=== PATIENT | male | born 1955 | race Caucasian/White ===

== ENCOUNTER 2019-05-07 09:37 | Emergency (ER) | payer OTHER, SELFPAY ==
[2019-05-07 09:45] VITALS: BP 156/85; PULSE 95; RESP 18; TEMP 36.1; O2SAT 95
[2019-05-07 10:00] VITALS: BP 133/99; BP 178/113; PULSE 61; PULSE 79; RESP 18; RESP 8; O2SAT 94; O2SAT 97
[2019-05-07 10:30] VITALS: BP 135/94; PULSE 82; RESP 18; O2SAT 96
--- NOTE | 2019-05-07 10:31 | DI.RAD.S_ITS ---
PROCEDURE: XR CHEST 1V INDICATIONS: chest pain TECHNIQUE: One view of the chest was acquired. COMPARISON: None. FINDINGS: Surgical changes and devices: Prior similar chest single view obtained reviewed.. Lungs and pleura: Lungs are clear. No pleural effusions or pneumothorax. Mediastinum: Mediastinal contours appear normal. Heart size is normal. Bones and chest wall: No suspicious bony lesions. Overlying soft tissues appear unremarkable. IMPRESSION: Normal for age, source of current chest pain symptoms is not seen. Dictated by: Misael Henderson M.D. on 05/07/2019 at 10:58 Approved by: Misael Henderson M.D. on 05/07/2019 at 10:58
--- NOTE | 2019-05-07 10:42 | PC.NURSE ---
pt reports, fasting for 9 days, today woke up feeling groggy lost balance, onset 0515 felt fine last night, denies any injuries or trauma at this time with bilateral hands tingling neuro exam negative denies fever,vomiting,vomiting, reports, having diarrhea due to fasting, diarrhea x3 in the last 24 hours denies blood.
[2019-05-07 10:57] VITALS: BP 153/98; PULSE 65; RESP 9; O2SAT 97
[2019-05-07 11:00] VITALS: BP 161/100; PULSE 69; RESP 10; O2SAT 98
[2019-05-07 11:33] LABS: Add Manual Diff / Slide Review NO; Basophils Absolute Auto 100 /uL (0-100); Basophils Percent Auto 1.5 % (0-2); Eosinophils Absolute Auto 200 /uL (0-450); Eosinophils Percent Auto 2.6 % (2-4); Hematocrit 44.1 % (41-53); Hemoglobin 15.1 g/dL (13.5-17.5); Lymphocytes Absolute Auto 2000 /uL (1100-4500); Lymphocytes Percent Auto 31.1 % (25-40); Mean Corpuscular HGB Conc 34.2 % (30-36); Mean Corpuscular Hemoglobin 31.8 PG (26-34); Mean Corpuscular Volume 92.9 fL (80-100); Monocytes Absolute Auto 600 /uL (0-900); Monocytes Percent Auto 9.1 % (3-14); Neutrophils Absolute Auto 3600 /uL (1500-7000); Neutrophils Percent Auto 55.7 % (50-75); Platelet Count 196 X10^3/uL (150-400); Red Blood Cell Count 4.74 X10^6/uL (4.5-5.9); Red Cell Distribution Width 13.7 % (11.6-14.8); White Blood Cell Count 6.4 X10^3/uL (4.5-11.0)
[2019-05-07 11:37] LABS: INR 1.1 (0.9-1.3)
[2019-05-07 11:39] LABS: RBC Urine None Seen (0-5/HPF); WBC Urine None Seen (0-5/HPF)
[2019-05-07 11:40] LABS: PTT Partial Thromboplastin Tim 33 SECONDS (26.4-36.2)
[2019-05-07 11:45] LABS: Appearance Urine UA CLEAR; Bilirubin Urine UA NEGATIVE (NEGATIVE); Color Urine UA YELLOW; Glucose Urine UA NEGATIVE (Negative); Ketones Urine UA 2+ (NEGATIVE); Leukocyte Esterase Urine UA NEGATIVE (NEGATIVE); Nitrite Urine UA NEGATIVE (Negative); Occult Blood Urine UA NEGATIVE (Negative); Protein Urine UA NEGATIVE (Negative); Specific Gravity Urine UA <=1.005 (1.000-1.035); Urobilinogen Urine UA 0.2 E.U./dL (0.2); pH Urine UA 5.5 (4.5-8.0)
[2019-05-07 11:45] LABS: Alanine Aminotransferase 25 IU/L (<50); Albumin 4.7 g/dL (3.5-5.0); Albumin Globulin Ratio 1.4 (1.0-2.8); Alkaline Phosphatase 69 U/L (38-126); Aspartate Aminotransferase 30 IU/L (17-59); BUN Creatinine Ratio 7.8 (6-22); Bilirubin Total 0.8 mg/dL (0.2-1.3); Blood Urea Nitrogen 7 mg/dL (9-20); Calcium 9.8 mg/dL (8.4-10.2); Carbon Dioxide 27 mmol/L (22-32); Chloride 96 mmol/L (98-107); Creatine Kinase 102 U/L (55-170); Estimated Glomerular Filt Rate > 60.0 mL/min (>60); Globulin 3.4 g/dL (1.7-4.1); Glucose 90 mg/dL (80-110); HEMOLYSIS < 15 (0-50); Lipase 87 U/L (23-300); Potassium 4.9 mmol/L (3.4-5.1); Sodium 138 mmol/L (137-145); Total Protein 8.1 g/dL (6.3-8.2)
[2019-05-07 11:55] VITALS: BP 136/86; PULSE 68; RESP 16
[2019-05-07 11:56] LABS: Troponin I < 0.012 ng/mL (0.01-0.034)
--- NOTE | 2019-05-07 11:59 | DI.CT.S_ITS ---
PROCEDURE: CT HEAD/BRAIN WO CON INDICATIONS: balance problem when work up this morning which lasted brief TECHNIQUE: Noncontrast 4.5 mm thick angled axial sections acquired from the foramen magnum to the vertex, with coronal and sagittal reformats. For radiation dose reduction, the following was used: automated exposure control, adjustment of mA and/or kV according to patient size. COMPARISON: [facility], CR, XR CHEST 1V, 05/07/2019, 10:35. FINDINGS: Image quality: Excellent. CSF spaces: Basal cisterns are patent. No extra-axial fluid collections. The ventricles are symmetric in size and shape. Brain: No intracranial bleeds or masses. There is cerebral volume loss for age, with resultant ventricular and sulcal prominence. There are periventricular and deep white matter chronic small vessel ischemic changes. There is intracranial internal carotid artery atherosclerosis. Skull and face: Calvarium and visualized facial bones appear intact, without suspicious lesions. Sinuses: Visualized sinuses and mastoids are clear. IMPRESSION: Normal intracranial examination for age, without an imaging explanation for the patient's presenting symptoms. If it would be helpful for clinical management decision making, please consider a dedicated brain MRI without and with contrast for further evaluation (assuming that there is no contraindication). Dictated by: Cb Dewey M.D. on 05/07/2019 at 11:34 Approved by: Cb Dewey M.D. on 05/07/2019 at 11:35
[2019-05-07 12:01] LABS: CKMB % Relative Index 0.9 % (1.5-5.0); Creatine Kinase MB 0.88 ng/mL (<2.37)
[2019-05-07 12:17] LABS: Bacteria Urine Occasional (0-1); Culture Indicated Urine Cult Not Indicated
--- NOTE | 2019-05-07 13:10 | ED_ITS ---
HPI - Dizziness <KENNETH Virgen - Last Filed: 05/07/19 22:07> General Chief Complaint: Dizziness Stated Complaint: Dizziness Time Seen by Provider: 05/07/19 11:28 Source: patient Mode of arrival: Ambulatory Limitations: no limitations History of Present Illness HPI Narrative: This is a 63-year-old male, former smoker, who presents to ED with chief complain of feeling drunk with balance problem he woke up this morning at 5:15 a.m.. Patient got out of bed and stood up and had difficulty with balance and fell backwards and sat himself down back to the bed. Patient ambulated leaning to right-sided and felt like falling over without dizziness or lightheadedness during morning hygiene routines. However, this has improved and patient fell symptom free driving to work this morning. Patient denies vision change, headache, speech difficulty, dysphagia, weakness to extremity, facial droops. Patient reports he has completed 8 day duration of fasting and is currently on day 9th. Patient only has been drinking water and black coffee along multi vitamins and supplements last 8-9 days. Patient started intermittent fasting over 24 hours during last 1.5 years for elevated Hgb A1c which was 12 and now it has decreased to 5.9 and is not taking any diabetic medications. Patient had a couple of times of longer duration of fasting up to 14 days without any problems now for weight loss. Patient currently is taking Eliquis 5 mg b.i.d. dose for history of a flutter since July 2017. Patient denies any recent trauma to her head or fall. Related Data Home Medications Medication Instructions Recorded Confirmed apixaban [Eliquis] mg 05/07/19 Allergies Allergy/AdvReac Type Severity Reaction Status Date / Time No Known Drug Allergies Allergy Verified 05/07/19 09:56 Review of Systems <KENNETH Virgen - Last Filed: 05/07/19 22:07> Review of Systems Narrative: General: Denies fever, chills, fatigue, malaise, sweats. HEENT: Denies sinus pain, ear pain, sore throat, difficulty swallowing, dizziness. Respiratory: Denies dyspnea, cough, wheezing, hemoptysis, sputum. Cardiovascular: Denies chest pain, palpitations, orthopnea, edema. Gastrointestinal: Denies nausea, vomiting, abdominal pain, diarrhea, constipation, melena. : Denies dysuria, frequency, incontinence, hematuria, urinary retention. Musculoskeletal: Denies weakness, joint pain or bony pain. Skin: Denies rash, skin lesions, or other. Neurologic: Denies weakness, headache, numbness, change in speech, confusion, seizures, (+) balance difficulty, incoordination. Psychiatric: No concerning psychosocial issues. 12-point review of systems is negative except for those stated above. Patient History <KENNETH Virgen - Last Filed: 05/07/19 22:07> Medical History Atrial flutter (Acute) Diabetes type 2, controlled (Acute) Social History Smoking Status: Former smoker Smoking Status: Former smoker alcohol intake frequency: other Substance Use Type: does not use Exam <KENNETH Virgen - Last Filed: 05/07/19 22:07> Narrative Exam Narrative: GEN: Alert, oriented x 3, well appearing and nourished, and in no acute distress. Head: Normal cephalic, atraumatic. No scalp or temporal tenderness, palpable mass or rash. EYES: Pupils are equal, round, and reactive to light and accommodation. Extraocular muscles are intact bilaterally. There is no subconjunctival hemorrhage, exudate and sclera non-icteric. ENT: Bilateral auditory canals and tympanic membranes clear. Hearing grossly intact. Nose without bleeding, purulent discharge, septal hematoma or deviation. Turbinate without erythema or swelling. Facial sinuses nontender to palpate. Mucous membrane moist, no mucosal lesion. Throat without erythema, tonsillar hypertrophy or exudate. Uvula in midline, airway patent. Neck: Trachea in midline. No JVD, non-tender without lymphadenopathy. No masses or thyroid megaly. Supple, non-tender and no meningeal signs. CARDIAC: Normal regular rate and rhythm without murmurs, gallops, or rubs. No chest wall tenderness. No peripheral edema, cyanosis or pallor. Capillary refill is less than 2 seconds. No carotid bruits. RESPIRATORY: Lungs are cleat to auscultate bilaterally. No cough, wheezes, rales, or rhonchi. No stridor, respiratory distress, increase work of breathing, or accessary muscle used. ABD: Abdomen soft, nontender and non-distended. No guarding or rebound tenderness to palpate. Bowel sounds are normal in all 4 quadrants. There is no palpable masses or organomegaly. EXT: Full painless ROM of all extremities with no loss of sensation, strength, effusion or edema. SKIN: Warm, dry, normal color for patient. No erythema, lesions or rash. BACK: Nontender without deformity or crepitance. No flank tenderness. NEUROLOGICAL: Alert and oriented to place, time and person. No facial droops, dysphasia. CN II-XII intact. Strength and sensation symmetric and intact throughout. Cerebellar testing normal. PSYCHIATRIC: Good judgement and reason, without hallucinations, abnormal affect or abnormal behaviors during the examination. Patient is not suicidal. Initial Vital Signs Initial Vital Signs: Vital Signs Temperature 96.9 F L 05/07/19 09:45 Pulse Rate 95 H 05/07/19 09:45 Respiratory Rate 18 05/07/19 09:45 Blood Pressure 156/85 H 05/07/19 09:45 Pulse Oximetry 95 05/07/19 09:45 <Emma Fofana DO - Last Filed: 05/09/19 20:00> Initial Vital Signs Initial Vital Signs: Vital Signs Temperature 96.9 F L 05/07/19 09:45 Pulse Rate 95 H 05/07/19 09:45 Respiratory Rate 18 05/07/19 09:45 Blood Pressure 156/85 H 05/07/19 09:45 Pulse Oximetry 95 05/07/19 09:45 Scores <KENNETH Virgen - Last Filed: 05/07/19 22:07> GCS Herman coma scale eye opening: Spontaneous Andra coma scale verbal response: Orientated Herman coma scale motor response: Obey commands Andra coma scale total score: 15 NIH Stroke Scale Level of Conciousness: Alert, keenly responsive Ask month/age: Answers both questions correctly. Open/close eyes, close hand: Performs both tasks correctly Best gaze horizontal: Normal Visual hart: No visual loss Facial palsy: Normal symetrical movement Left arm drift: No drift for full 10 sec Right arm drift: No drift for full 10 sec Left leg drift: No drift for full 10 sec Right leg drift: No drift for full 10 sec Limb ataxia: Absent Sensory on face/arms/legs: Normal, no sensory loss Best language: No aphasia, normal Dysarthria: Normal Extinction or inattention: No abnormality Total NIH Stroke scale score: 0 Course <KENNETH Virgen - Last Filed: 05/07/19 22:07> Orders Ordered: ED Orders 05/07/19 10:03 EKG-12 Lead Stat 05/07/19 10:31 XR chest 1V Stat 05/07/19 11:23 Complete Blood Count AUTO DIFF Stat Comprehensive Metabolic Panel Stat Lipase Stat Partial Thromboplastin Time Stat Prothrombin Time INR Stat Troponin & CK Cardiac Panel Stat 05/07/19 11:38 Urinalysis and Microscopic Stat 05/07/19 11:59 CT head/brain wo con Stat Vital Signs Vital signs: Vital Signs - 8 hr 05/07/19 09:45 05/07/19 10:00 05/07/19 10:30 Temperature 96.9 F L Pulse Rate 95 H 61 82 Respiratory Rate 18 8 L 18 Blood Pressure 156/85 H Blood Pressure [Left Arm] 178/113 H 135/94 H Pulse Oximetry 95 97 96 05/07/19 10:57 05/07/19 11:00 05/07/19 11:55 Temperature Pulse Rate 65 69 68 Respiratory Rate 9 L 10 L 16 Blood Pressure Blood Pressure [Left Arm] 153/98 H 161/100 H 136/86 Pulse Oximetry 97 98 <Emma Fofana DO - Last Filed: 05/09/19 20:00> Orders Ordered: ED Orders 05/07/19 10:03 EKG-12 Lead Stat 05/07/19 10:31 XR chest 1V Stat 05/07/19 11:23 Complete Blood Count AUTO DIFF Stat Comprehensive Metabolic Panel Stat Lipase Stat Partial Thromboplastin Time Stat Prothrombin Time INR Stat Troponin & CK Cardiac Panel Stat 05/07/19 11:38 Urinalysis and Microscopic Stat 05/07/19 11:59 CT head/brain wo con Stat Vital Signs Vital signs: Vital Signs - 8 hr 05/07/19 09:45 05/07/19 10:00 05/07/19 10:30 Temperature 96.9 F L Pulse Rate 95 H 61 82 Respiratory Rate 18 8 L 18 Blood Pressure 156/85 H Blood Pressure [Left Arm] 178/113 H 135/94 H Pulse Oximetry 95 97 96 05/07/19 10:57 05/07/19 11:00 05/07/19 11:55 Temperature Pulse Rate 65 69 68 Respiratory Rate 9 L 10 L 16 Blood Pressure Blood Pressure [Left Arm] 153/98 H 161/100 H 136/86 Pulse Oximetry 97 98 MDM - Dizziness <Ritesh KENNETH Ly - Last Filed: 05/07/19 22:07> Differential Diagnosis Differential diagnosis: Likely orthostatic hypotension, cerebrovascular accident, transient cerebral ischemia and other Medical Records Attestation: I reviewed the patient's medical records. Lab Data Attestation: I reviewed the patient's lab results. Result diagrams: 05/07/19 11:23 05/07/19 11:23 Labs: Lab Results 05/07/19 05/07/19 05/07/19 Range/Units 11:23 11:23 11:23 WBC 6.4 (4.5-11.0) X10^3/uL RBC 4.74 (4.5-5.9) X10^6/uL Hgb 15.1 (13.5-17.5) g/dL Hct 44.1 (41-53) % MCV 92.9 (80-100) fL MCH 31.8 (26-34) PG MCHC 34.2 (30-36) % RDW 13.7 (11.6-14.8) % Plt Count 196 (150-400) X10^3/uL Neut % (Auto) 55.7 (50-75) % Lymph % (Auto) 31.1 (25-40) % [place] % (Auto) 9.1 (3-14) % Eos % (Auto) 2.6 (2-4) % Baso % (Auto) 1.5 (0-2) % Neut # (Auto) 3600 (1102-3415) /uL Lymph # (Auto) 2000 (2890-7743) /uL [place] # (Auto) 600 (0-900) /uL Eos # (Auto) 200 (0-450) /uL Baso # (Auto) 100 (0-100) /uL PT 13.0 H (10.1-12.7) SECONDS INR 1.1 (0.9-1.3) APTT 33 (26.4-36.2) SECONDS Sodium 138 (137-145) mmol/L Potassium 4.9 (3.4-5.1) mmol/L Chloride 96 L (98-107) mmol/L Carbon Dioxide 27 (22-32) mmol/L BUN 7 L (9-20) mg/dL Creatinine 0.90 (0.66-1.25) mg/dL Estimated GFR > 60.0 (>60) mL/min BUN/Creatinine Ratio 7.8 (6-22) Glucose 90 (80-110) mg/dL Calcium 9.8 (8.4-10.2) mg/dL Total Bilirubin 0.8 (0.2-1.3) mg/dL AST 30 (17-59) IU/L ALT 25 (<50) IU/L Alkaline Phosphatase 69 (38-126) U/L Total Creatine Kinase 102 (55-170) U/L CK-MB (CK-2) 0.88 (<2.37) ng/mL CK-MB (CK-2) Rel Index 0.9 L (1.5-5.0) % Troponin I < 0.012 (0.01-0.034) ng/mL Total Protein 8.1 (6.3-8.2) g/dL Albumin 4.7 (3.5-5.0) g/dL Globulin 3.4 (1.7-4.1) g/dL Albumin/Globulin Ratio 1.4 (1.0-2.8) Lipase 87 (23-300) U/L Urine Color Urine Appearance Urine pH (4.5-8.0) Ur Specific [place] (1.000-1.035) Urine Protein (Negative) Urine Glucose (UA) (Negative) g/dL Urine Ketones (NEGATIVE) Urine Occult Blood (Negative) Urine Nitrate (Negative) Urine Bilirubin (NEGATIVE) Urine Urobilinogen (0.2) E.U./dL Ur Leukocyte Esterase (NEGATIVE) Urine RBC (0-5/HPF) Urine WBC (0-5/HPF) Urine Bacteria (None) Ur Culture Indicated? Micro UA Comment 05/07/19 Range/Units 11:38 WBC (4.5-11.0) X10^3/uL RBC (4.5-5.9) X10^6/uL Hgb (13.5-17.5) g/dL Hct (41-53) % MCV (80-100) fL MCH (26-34) PG MCHC (30-36) % RDW (11.6-14.8) % Plt Count (150-400) X10^3/uL Neut % (Auto) (50-75) % Lymph % (Auto) (25-40) % [place] % (Auto) (3-14) % Eos % (Auto) (2-4) % Baso % (Auto) (0-2) % Neut # (Auto) (3019-8451) /uL Lymph # (Auto) (2896-3753) /uL [place] # (Auto) (0-900) /uL Eos # (Auto) (0-450) /uL Baso # (Auto) (0-100) /uL PT (10.1-12.7) SECONDS INR (0.9-1.3) APTT (26.4-36.2) SECONDS Sodium (137-145) mmol/L Potassium (3.4-5.1) mmol/L Chloride (98-107) mmol/L Carbon Dioxide (22-32) mmol/L BUN (9-20) mg/dL Creatinine (0.66-1.25) mg/dL Estimated GFR (>60) mL/min BUN/Creatinine Ratio (6-22) Glucose (80-110) mg/dL Calcium (8.4-10.2) mg/dL Total Bilirubin (0.2-1.3) mg/dL AST (17-59) IU/L ALT (<50) IU/L Alkaline Phosphatase (38-126) U/L Total Creatine Kinase (55-170) U/L CK-MB (CK-2) (<2.37) ng/mL CK-MB (CK-2) Rel Index (1.5-5.0) % Troponin I (0.01-0.034) ng/mL Total Protein (6.3-8.2) g/dL Albumin (3.5-5.0) g/dL Globulin (1.7-4.1) g/dL Albumin/Globulin Ratio (1.0-2.8) Lipase (23-300) U/L Urine Color Yellow Urine Appearance Clear Urine pH 5.5 (4.5-8.0) Ur Specific [place] <=1.005 (1.000-1.035) Urine Protein Negative (Negative) Urine Glucose (UA) Negative (Negative) g/dL Urine Ketones 2+ H (NEGATIVE) Urine Occult Blood Negative (Negative) Urine Nitrate Negative (Negative) Urine Bilirubin Negative (NEGATIVE) Urine Urobilinogen 0.2 (0.2) E.U./dL Ur Leukocyte Esterase Negative (NEGATIVE) Urine RBC None seen (0-5/HPF) Urine WBC None seen (0-5/HPF) Urine Bacteria Occasional (0-1) (None) Ur Culture Indicated? Cult not indicated Micro UA Comment Imaging Data CT scan - head: Radiologist's Impression: [address] [address] [address] Scan Report Signed Patient: Bruce Tinsley PMR#: [id number] : 6Acct:[id number] Age/Sex: 63 / MDate of Service: 05/07/19 Loc: ED Accession Number: [id number] Procedure: CT head/brain wo con Ordering Provider: Ritesh Ly PROCEDURE: CT HEAD/BRAIN WO CON INDICATIONS: balance problem when work up this morning which lasted brief TECHNIQUE: Noncontrast 4.5 mm thick angled axial sections acquired from the foramen magnum to the vertex, with coronal and sagittal reformats. For radiation dose reduction, the following was used: automated exposure control, adjustment of mA and/or kV according to patient size. COMPARISON: [facility], CR, XR CHEST 1V, 05/07/2019, 10:35. FINDINGS: Image quality: Excellent. CSF spaces: Basal cisterns are patent. No extra-axial fluid collections. The ventricles are symmetric in size and shape. Brain: No intracranial bleeds or masses. There is cerebral volume loss for age, with resultant ventricular and sulcal prominence. There are periventricular and deep white matter chronic small vessel ischemic changes. There is intracranial internal carotid artery atherosclerosis. Skull and face: Calvarium and visualized facial bones appear intact, without suspicious lesions. Sinuses: Visualized sinuses and mastoids are clear. IMPRESSION: Normal intracranial examination for age, without an imaging explanation for the patient's presenting symptoms. If it would be helpful for clinical management decision making, please consider a dedicated brain MRI without and with contrast for further evaluation (assuming that there is no contraindication). Dictated by: Cb Dewey M.D. on 05/07/2019 at 11:34 Approved by: Cb Dewey M.D. on 05/07/2019 at 11:35 Chest x-ray: Radiologist's Impression: [address] [address] XRay Report Signed Patient: Bruce Tinsley PMR#: [id number] : 6Acct:[id number] Age/Sex: 63 / MDate of Service: 05/07/19 Loc: ED Accession Number: [id number] Procedure: XR chest 1V Ordering Provider: Emma Fofana D.O. PROCEDURE: XR CHEST 1V INDICATIONS: chest pain TECHNIQUE: One view of the chest was acquired. COMPARISON: None. FINDINGS: Surgical changes and devices: Prior similar chest single view obtained reviewed.. Lungs and pleura: Lungs are clear. No pleural effusions or pneumothorax. Mediastinum: Mediastinal contours appear normal. Heart size is normal. Bones and chest wall: No suspicious bony lesions. Overlying soft tissues appear unremarkable. IMPRESSION: Normal for age, source of current chest pain symptoms is not seen. Dictated by: Misael Henderson M.D. on 05/07/2019 at 10:58 Approved by: Misael Henderson M.D. on 05/07/2019 at 10:58 ECG Data Attestation: I personally reviewed and interpreted this ECG as follows: Prior ECG tracings: not available for review Interpretation: Normal sinus rhythm rate at 88. Left axis dominant [place] int 162, QRS dur 100, QT/QTC 380/459. Poor R progression No ST elevation or depression. MDM Narrative Medical decision making narrative: EKG exhibited is normal sinus rhythm rate at 88. CT scan of head does not show acute findings such as bleed or masses. Cardiac enzymes were negative. Chest x-ray was normal. Patient's neuro exam was unremarkable and strength equal bilaterally without dysphagia, dysphagia, facial droops or ataxia. NIHSS score 0. Patient is currently symptom free as well. Lab tests were unremarkable except very mildly decreased chloride of 96 and ketones in urine which likely from the prolonged fasting. Patient currently takes Eliquis 5 mg b.i.d. for atrial flutter since July of 2017. Patient advised to consider not continuing with prolonged fasting. Advised [facility] with [facility]ogram and Doppler on carotid test outpatiently. Patient advised to hydrate adequately and changes positions slowly to prevent possible orthostatic hypotension. Return precautions were discussed with the patient and to call 911 if neurologic deficits symptoms occur. Patient verbalized understanding and in agreement with the treatment plan. <Emma Fofana, DO - Last Filed: 05/09/19 20:00> Lab Data Labs: Lab Results 05/07/19 05/07/19 05/07/19 Range/Units 11:23 11:23 11:23 WBC 6.4 (4.5-11.0) X10^3/uL RBC 4.74 (4.5-5.9) X10^6/uL Hgb 15.1 (13.5-17.5) g/dL Hct 44.1 (41-53) % MCV 92.9 (80-100) fL MCH 31.8 (26-34) PG MCHC 34.2 (30-36) % RDW 13.7 (11.6-14.8) % Plt Count 196 (150-400) X10^3/uL Neut % (Auto) 55.7 (50-75) % Lymph % (Auto) 31.1 (25-40) % [place] % (Auto) 9.1 (3-14) % Eos % (Auto) 2.6 (2-4) % Baso % (Auto) 1.5 (0-2) % Neut # (Auto) 3600 (1769-6016) /uL Lymph # (Auto) 2000 (0066-2742) /uL [place] # (Auto) 600 (0-900) /uL Eos # (Auto) 200 (0-450) /uL Baso # (Auto) 100 (0-100) /uL PT 13.0 H (10.1-12.7) SECONDS INR 1.1 (0.9-1.3) APTT 33 (26.4-36.2) SECONDS Sodium 138 (137-145) mmol/L Potassium 4.9 (3.4-5.1) mmol/L Chloride 96 L (98-107) mmol/L Carbon Dioxide 27 (22-32) mmol/L BUN 7 L (9-20) mg/dL Creatinine 0.90 (0.66-1.25) mg/dL Estimated GFR > 60.0 (>60) mL/min BUN/Creatinine Ratio 7.8 (6-22) Glucose 90 (80-110) mg/dL Calcium 9.8 (8.4-10.2) mg/dL Total Bilirubin 0.8 (0.2-1.3) mg/dL AST 30 (17-59) IU/L ALT 25 (<50) IU/L Alkaline Phosphatase 69 (38-126) U/L Total Creatine Kinase 102 (55-170) U/L CK-MB (CK-2) 0.88 (<2.37) ng/mL CK-MB (CK-2) Rel Index 0.9 L (1.5-5.0) % Troponin I < 0.012 (0.01-0.034) ng/mL Total Protein 8.1 (6.3-8.2) g/dL Albumin 4.7 (3.5-5.0) g/dL Globulin 3.4 (1.7-4.1) g/dL Albumin/Globulin Ratio 1.4 (1.0-2.8) Lipase 87 (23-300) U/L Urine Color Urine Appearance Urine pH (4.5-8.0) Ur Specific [place] (1.000-1.035) Urine Protein (Negative) Urine Glucose (UA) (Negative) g/dL Urine Ketones (NEGATIVE) Urine Occult Blood (Negative) Urine Nitrate (Negative) Urine Bilirubin (NEGATIVE) Urine Urobilinogen (0.2) E.U./dL Ur Leukocyte Esterase (NEGATIVE) Urine RBC (0-5/HPF) Urine WBC (0-5/HPF) Urine Bacteria (None) Ur Culture Indicated? Micro UA Comment 05/07/19 Range/Units 11:38 WBC (4.5-11.0) X10^3/uL RBC (4.5-5.9) X10^6/uL Hgb (13.5-17.5) g/dL Hct (41-53) % MCV (80-100) fL MCH (26-34) PG MCHC (30-36) % RDW (11.6-14.8) % Plt Count (150-400) X10^3/uL Neut % (Auto) (50-75) % Lymph % (Auto) (25-40) % [place] % (Auto) (3-14) % Eos % (Auto) (2-4) % Baso % (Auto) (0-2) % Neut # (Auto) (4844-3615) /uL Lymph # (Auto) (2881-6372) /uL [place] # (Auto) (0-900) /uL Eos # (Auto) (0-450) /uL Baso # (Auto) (0-100) /uL PT (10.1-12.7) SECONDS INR (0.9-1.3) APTT (26.4-36.2) SECONDS Sodium (137-145) mmol/L Potassium (3.4-5.1) mmol/L Chloride (98-107) mmol/L Carbon Dioxide (22-32) mmol/L BUN (9-20) mg/dL Creatinine (0.66-1.25) mg/dL Estimated GFR (>60) mL/min BUN/Creatinine Ratio (6-22) Glucose (80-110) mg/dL Calcium (8.4-10.2) mg/dL Total Bilirubin (0.2-1.3) mg/dL AST (17-59) IU/L ALT (<50) IU/L Alkaline Phosphatase (38-126) U/L Total Creatine Kinase (55-170) U/L CK-MB (CK-2) (<2.37) ng/mL CK-MB (CK-2) Rel Index (1.5-5.0) % Troponin I (0.01-0.034) ng/mL Total Protein (6.3-8.2) g/dL Albumin (3.5-5.0) g/dL Globulin (1.7-4.1) g/dL Albumin/Globulin Ratio (1.0-2.8) Lipase (23-300) U/L Urine Color Yellow Urine Appearance Clear Urine pH 5.5 (4.5-8.0) Ur Specific [place] <=1.005 (1.000-1.035) Urine Protein Negative (Negative) Urine Glucose (UA) Negative (Negative) g/dL Urine Ketones 2+ H (NEGATIVE) Urine Occult Blood Negative (Negative) Urine Nitrate Negative (Negative) Urine Bilirubin Negative (NEGATIVE) Urine Urobilinogen 0.2 (0.2) E.U./dL Ur Leukocyte Esterase Negative (NEGATIVE) Urine RBC None seen (0-5/HPF) Urine WBC None seen (0-5/HPF) Urine Bacteria Occasional (0-1) (None) Ur Culture Indicated? Cult not indicated Micro UA Comment Discharge Plan Departure Patient Disposition: Home Clinical Impression: Dizziness on standing Discharge Date/Time: 05/07/19 13:35 Instructions: DI for Dizziness-Nonvertigo Activity Restrictions/Additional Instructions: You have been diagnosed with [balance difficulty which has resolved. Head CT scan was unremarkable. Lab tests were unremarkable including cardiac enzymes. Your chloride was mildly decreased to 96. Your urine showed ketones likely from fasting for last 9 days]. What to do: *Take your medications as directed. No new medications to go home with. *Follow up with your primary care provider in 2-3 days, call for an appointment. Let them know you were seen in the ED and that we asked you to be seen in follow up. You may need echocardiogram and carotid ultrasound test which can be arranged by her PCP outpatiently at [facility]. Please consider doing short period of intermittent fasting and take her time when changing position from lyi ng to standing. *Return to ED if you have any new, worsening, or concerning symptoms, such as [chest pain, breathing difficulty, unable to tolerate fluids, stroke-like symptoms such as speech difficulty, facial droops, weakness to extremities, vision change, severe headache, worsening balance problem.]. Prescriptions: No Action Eliquis 5 mg tablet RF: 0
== END 2019-05-07 13:35 | disposition home or self-care (01) ==
PROVIDERS: Emergency Medicine; Emergency Provider Nurse Practitioner Family; PCP Orthopaedic Surgery
DX: R42 Dizziness and giddiness (principal)
CPT/HCPCS: 36415; 70450; 71045; 80053; 81001; 82550; 82553; 83690; 84484; 85025; 85610; 85730; 93005; 99284; 99285